=== PATIENT | male | born 1985 | race Caucasian/White ===

== ENCOUNTER → 2019-09-15 15:05 | Outpatient (BNVA) | payer MEDICAID, SELFPAY | PROVIDERS: PCP Internal Medicine Medical Oncology; Visit Provider Emergency Medicine | DX: R07.89 Other chest pain (principal) | CPT/HCPCS: 71046 ==

== ENCOUNTER → 2019-12-03 14:48 | Outpatient (BNVA) | payer MEDICAID, SELFPAY | PROVIDERS: PCP Internal Medicine Medical Oncology; Visit Provider Nurse Practitioner Family | DX: M79.641 Pain in right hand (principal) | CPT/HCPCS: 73130 ==

== ENCOUNTER → 2020-04-15 10:43 | Outpatient (BNVA) | payer MEDICAID, SELFPAY | PROVIDERS: PCP Internal Medicine Medical Oncology; Visit Provider Emergency Medicine | DX: Z20.828 Contact with and (suspected) exposure to other viral communicable diseases (principal); R68.89 Other general symptoms and signs | CPT/HCPCS: 87400; 87635 ==

== ENCOUNTER → 2021-09-27 16:35 | Outpatient (BNVA) | payer MEDICAID, SELFPAY | PROVIDERS: Visit Provider Emergency Medicine | DX: M54.6 Pain in thoracic spine (principal) | CPT/HCPCS: 72072 ==

== ENCOUNTER → 2022-05-08 16:17 | Outpatient (BNVA) | payer MEDICAID, SELFPAY | PROVIDERS: Visit Provider Nurse Practitioner Family | DX: R10.11 Right upper quadrant pain (principal) | CPT/HCPCS: 80053; 80061; 80074; 85025 ==

== ENCOUNTER 2022-05-24 07:46 | Outpatient (CLI) | payer MEDICAID, SELFPAY ==
--- NOTE | 2022-05-24 08:00 | US_ITS ---
WS: [id number] Complete ABDOMINAL ULTRASOUND HISTORY: R10.11 - Right upper quadrant pain COMPARISON: CT 07/07/2010 Liver: 14.5 cm in length. Liver is normal size and echogenicity with no mass or intrahepatic dilatati on. Portal Vein: Normal hepatopetal flow with monophasic waveform. Gallbladder: Normally distended with no gallstones, wall thickening or pericholecystic fluid. Pancreas: Normal size and echogenicity. CBD: 0.2 cm. Right kidney: 10.2 cm x 5.3 cm x 4.3 cm. No mass, cortical thickening or hydronephrosis. Left kidney: 10.3 cm x 4.3 cm x 5.0 cm. No mass, cortical thickening or hydronephrosis. Spleen: Normal size and echogenicity. Adjacent splenule measures 1.6 x 2.0 x 1.8 cm. Abdominal aorta and IVC are within normal limits. No ascites. US/US abdomen complete* [id number] IMPRESSION: 1. No acute abdominal findings. 2. Normal gallbladder. 3. No renal obstruction.
== END 2022-05-24 07:47 | disposition home or self-care (01) ==
LOC: RAD 07:50
PROVIDERS: Visit Provider Nurse Practitioner Family
DX: R10.11 Right upper quadrant pain (principal)
CPT/HCPCS: 76700

== ENCOUNTER → 2022-08-04 11:19 | Outpatient (BNVA) | payer MEDICAID, SELFPAY | PROVIDERS: Visit Provider Family Medicine | DX: M25.512 Pain in left shoulder (principal) | CPT/HCPCS: 73030 ==

== ENCOUNTER → 2022-11-24 08:46 | Outpatient (BNVA) | payer MEDICAID, OTHER, SELFPAY | PROVIDERS: PCP Family Medicine; Visit Provider Family Medicine | DX: S29.019A Strain of muscle and tendon of unspecified wall of thorax, initial encounter (principal); X58.XXXA Exposure to other specified factors, initial encounter | CPT/HCPCS: 72072 ==

== ENCOUNTER → 2022-12-12 16:14 | Outpatient (BNVA) | payer MEDICAID, OTHER, SELFPAY | PROVIDERS: PCP Family Medicine; Visit Provider Family Medicine | DX: F41.9 Anxiety disorder, unspecified (principal) | CPT/HCPCS: 93005 ==

== ENCOUNTER → 2022-12-21 11:53 | Outpatient (BNVA) | payer MEDICAID, OTHER, SELFPAY | PROVIDERS: PCP Family Medicine; Visit Provider Family Medicine | DX: L91.8 Other hypertrophic disorders of the skin (principal) | CPT/HCPCS: 88304 ==

== ENCOUNTER 2023-01-19 14:26 | Emergency (ER) | payer MEDICAID, OTHER, SELFPAY ==
[2023-01-19 14:40] VITALS: BMI 22.9
[2023-01-19 14:42] VITALS: BP 134/90; PULSE 78; RESP 18; TEMP 36.6; O2SAT 97
[2023-01-19 15:08] LABS: Basophils # 0.1 10^3/uL (0.0-0.1); Eosinophils # 0.2 10^3/uL (0.0-0.8); Eosinophils % 2.4 %; Hematocrit 51.7 % (42.0-52.0); Hemoglobin 16.4 g/dL (11.7-16.6); Lymphocytes # 2.8 10^3/uL (0.8-4.8); Mean Corpuscular HGB Conc 31.7 g/dL (30.0-36.0); Mean Corpuscular Volume 91.3 fl (80-94); Mean Platelet Volume 10.9 fL (7.4-10.4); Monocytes # 0.4 10^3/uL (0.2-0.9); Monocytes % 5.8 %; Neutrophils # 3.58 10^3/uL (1.8-7.7); Neutrophils % 50.5 %; Nucleated Red Blood Cells % 0 %; Platelet Count 240 10^3/cmm (130-400); Red Blood Count 5.66 10^6/uL (4.1-5.3); Red Cell Distribution Width 11.8 % (12.1-15.1); White Blood Count 7.1 10^3/uL (4.0-10.0)
[2023-01-19 16:33] LABS: Alanine Aminotransferase 27 U/L (0-41); Alkaline Phosphatase 57 U/L (40-130); Anion Gap 15.3 (5-19); Aspartate Amino Transferase 18 U/L (0-40); Blood Urea Nitrogen 14 mg/dL (6-20); Calcium 9.9 mg/dL (8.5-10.5); Carbon Dioxide 26 mmol/L (22-29); Chloride 103 mmol/L (98-107); Globulin 2.3 g/dL (1.3-4.6); Glomerular Filtration Rate 126.2 mL/min (90-130); Glucose 80 mg/dL (65-115); Lipase 51 U/L (13-60); Osmolality Calculated 289 mOsm/kg (285-295); Potassium 4.3 mmol/L (3.5-5.1); Sodium 140 mmol/L (136-145); Total Bilirubin 0.4 mg/dL (0.15-1.2); Total Protein 7.3 g/dL (6.6-8.7)
--- NOTE | 2023-01-19 17:54 | ED_ITS ---
HPI - Male Genitourinary General: Chief complaint: Urogenital-Male Stated complaint: physician sent, hernia Time Seen by Provider: 01/19/23 17:51 History of Present Illness: 37-year-old male patient comes in with some left inguinal pain. Patient has been seen 2 times at [facility] and diagnosed with inguinal hernia. Patient was seen at the walk-in clinic and [place] today and was referred to the ER for further evaluation and treatment. Patient reports no increased in pain or discomfort. 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 Insomnia Psychiatric care Reactive airway disease with acute exacerbation Surgical History H/O hernia repair H/O shoulder surgery Social History Smoking and tobacco status: former smoker Alcohol intake: current Alcohol intake frequency: holidays/special occasions only Desire information about alcohol rehabilitation?: No Substance/Drug Use: unknown Desire information about substance/drug rehabilitation?: No Current gender identity: Male Physical Exam Const: COMMON NORMALS: alert HENMT: COMMON NORMALS: normocephalic HEAD & SCALP: normocephalic Neck/C-Spine: COMMON NORMALS: full ROM Resp: COMMON NORMALS: normal respiratory effort Cardio: COMMON NORMALS: regular rate RATE: regular rate GI: COMMON NORMALS: Soft to palpation and non-tender PALPATION: Yes Soft to palpation : MALE GROIN/PERINEUM EXAM: No edema and No erythema PENIS: normal penis MEATUS: meatus normal SCROTUM: Yes testes descended bilaterally, Yes Cremasteric reflex present and Yes inguinal hernia (No bulge, no increased redness or tenderness) TESTES: Yes testicular lie normal and No testicular swelling Back/Pelvis: COMMON NORMALS: thoracic and lumbar spine normal to inspection Extremity: COMMON NORMALS: full ROM Neuro: SENSORIUM/ORIENTATION: Yes alert Skin: COMMON NORMALS: turgor normal GENERAL SKIN EXAM: turgor normal Course Vital Signs: Vital signs: Vital Signs Temperature 97.8 F 01/19/23 14:42 Pulse Rate 78 01/19/23 14:42 Respiratory Rate 18 01/19/23 14:42 Blood Pressure 134/90 01/19/23 14:42 Pulse Oximetry 97 01/19/23 14:42 Oxygen Delivery Me thod Room Air 01/19/23 14:42 MDM - Male Medical Decision Making 37-year-old male patient comes in today with a known left inguinal hernia. Patient was seen at walk-in clinic due to running out of his Tylenol 3 for his pain walk-in clinic referred him to the ER for further evaluation and treatment. On exam the left inguinal area notes no redness or induration. Patient is tender but no palpable hernia is noted at this time. Testicles are normal. Remainder of scrotal and genital exam was normal. Vital signs were normal. Review of the record noted 2 ultrasounds that showed possible hernia, and a CT scan that showed a fat-containing hernia in the left inguinal area. These exam were done in the last 6 days. Differential diagnosis includes but not limited to inguinal hernia incarceration, inguinal hernia without incarceration, muscle strain, anxiety about health, malingering. I believe patient has a inguinal hernia with no incarceration or signs of severe illness at this time. We wrote patient a prescription for medications to help with pain and put in a case management request for surgical follow-up. Patient was recommended not to heavy lift and to continue routine care. Patient stated understanding and agreed to plan. Lab Data 01/19/23 14:50 01/19/23 16:10 Laboratory Results WBC 7.1 10^3/uL (4.0-10.0) 01/19/23 14:50 RBC 5.66 10^6/uL (4.1-5.3) H 01/19/23 14:50 Hgb 16.4 g/dL (11.7-16.6) 01/19/23 14:50 Hct 51.7 % (42.0-52.0) 01/19/23 14:50 MCV 91.3 fl (80-94) 01/19/23 14:50 MCH 29.0 pg (28.0-34.0) 01/19/23 14:50 MCHC 31.7 g/dL (30.0-36.0) 01/19/23 14:50 RDW 11.8 % (12.1-15.1) L 01/19/23 14:50 Plt Count 240 10^3/cmm (130-400) 01/19/23 14:50 MPV 10.9 fL (7.4-10.4) H 01/19/23 14:50 Neut % (Auto) 50.5 % 01/19/23 14:50 Lymph % (Auto) 40.0 % 01/19/23 14:50 [place] % (Auto) 5.8 % 01/19/23 14:50 Eos % (Auto) 2.4 % 01/19/23 14:50 Baso % (Auto) 1.0 % 01/19/23 14:50 Neut # (Auto) 3.58 10^3/uL (1.8-7.7) 01/19/23 14:50 Lymph # (Auto) 2.8 10^3/uL (0.8-4.8) 01/19/23 14:50 [place] # (Auto) 0.4 10^3/uL (0.2-0.9) 01/19/23 14:50 Eos # (Auto) 0.2 10^3/uL (0.0-0.8) 01/19/23 14:50 Baso # (Auto) 0.1 10^3/uL (0.0-0.1) 01/19/23 14:50 Nucleated RBC % (auto) 0 % 01/19/23 14:50 Nucleated RBCs # 0.0 /100WBC 01/19/23 14:50 Sodium 140 mmol/L (136-145) 01/19/23 16:10 Potassium 4.3 mmol/L (3.5-5.1) 01/19/23 16:10 Chloride 103 mmol/L (98-107) 01/19/23 16:10 Carbon Dioxide 26 mmol/L (22-29) 01/19/23 16:10 Anion Gap 15.3 (5-19) 01/19/23 16:10 BUN 14 mg/dL (6-20) 01/19/23 16:10 Creatinine 0.7 mg/dL (0.7-1.2) 01/19/23 16:10 GFR Calculation 126.2 mL/min (90-130) 01/19/23 16:10 Glucose 80 mg/dL (65-115) 01/19/23 16:10 Calculated Osmolality 289 mOsm/kg (285-295) 01/19/23 16:10 Calcium 9.9 mg/dL (8.5-10.5) 01/19/23 16:10 Total Bilirubin 0.4 mg/dL (0.15-1.2) 01/19/23 16:10 AST 18 U/L (0-40) 01/19/23 16:10 ALT 27 U/L (0-41) 01/19/23 16:10 Alkaline Phosphatase 57 U/L (40-130) 01/19/23 16:10 Total Protein 7.3 g/dL (6.6-8.7) 01/19/23 16:10 Albumin 5.0 g/dL (3.5-5.2) 01/19/23 16:10 Globulin 2.3 g/dL (1.3-4.6) 01/19/23 16:10 Lipase 51 U/L (13-60) 01/19/23 16:10 Discharge Plan Discharge Patient Disposition: Home Clinical Impression: Inguinal hernia Qualifiers: Obstruction and gangrene presence: without obstruction or gangrene Laterality: unilateral Recurrence: non-recurrent Qualified Code(s): K40.90 - Unilateral inguinal hernia, without obstruction or gangrene, not specified as recurrent Condition: Stable Prescriptions: New hydrocodone-acetaminophen 5-325 mg tablet 1 tab PO Q6H PRN (Reason: pain) Qty: 12 0RF No Action acetaminophen-codeine 300-30 mg tablet 1 tab PO Q4H PRN (Reason: groin pain) Qty: 20 0RF methocarbamol 750 mg tablet 750 mg PO TID 5 Days Qty: 15 0RF ondansetron 4 mg tablet,disintegrating 4 mg PO Q6H PRN (Reason: nausea and vomiting) Qty: 12 0RF Rx Instructions: 340b please Discharge Orders: Discharge ED (Routine); Ordered 01/19/23 Ordered By: Casey Calderon Referrals: Jaelyn Choe MD [Primary Care Provider] - Discharge Diet: Usual diet Discharge Activity: Increase activity as tolerated Patient Instructions: Inguinal Hernia (ED) Activity Restrictions/Additional Instructions: Home and rest. No heavy lifting. Drink plenty of water. Monitor site for signs of redness and inflammation. Return to ER for the signs including high fever or blood in vomit or stool. Follow-up with primary care as needed. Case management will contact you regarding follow-up appointment with surgeon. Coding Level of Care Code ED Rubber Mold Maker for Lamar Hunter
[2023-01-19 18:08] VITALS: BP 127/90; PULSE 71; O2SAT 95
[2023-01-19] MEDS: HYDROcodone-acetaminophen 7.5-325 mg Tablet 1 TAB PO (18:09)
--- NOTE | 2023-01-20 07:40 | DCPLANNER ---
Addendum entered by Nelly Sharma 01/31/23 15:08: Patient did attend appointment scheduled with general surgery Addendum entered by Nelly Sharma 01/24/23 15:22: Patient has a follow up appointment scheduled for Friday, January 27, 2023 at 1:[address] Almaraz at general surgery. Original Note: manager of change had message to schedule a follow up appointment for patient with general surgery. manager of change sent patients information to the front office staff at general surgery. Patients information will be printed and reviewed. Clinic will call patient with appointment information.
== END 2023-01-19 18:12 | disposition home or self-care (01) ==
PROVIDERS: Emergency Medicine; Emergency Provider Nurse Practitioner Family; PCP Family Medicine
DX: K40.90 Unilateral inguinal hernia, without obstruction or gangrene, not specified as recurrent (principal); Z87.891 Personal history of nicotine dependence
CPT/HCPCS: 36415; 80053; 83690; 85025; 99283

== ENCOUNTER 2023-03-15 10:38 | Day surgery (SDC) | payer MEDICAID, SELFPAY ==
[2023-02-14 10:30] VITALS: BMI 22.8
[2023-03-15] VITALS (12 sets, daily range): BP systolic 110–126; BP diastolic 65–100; PULSE 61–90; RESP 14–19; TEMP 36.2–36.9; O2SAT 92–98; BMI 22.8
--- NOTE | 2023-03-15 06:32 | W.PM.OPSFHP ---
Same Day Surgery H&P Indication for Procedure/HPI DATE OF PROCEDURE: March 15, 2023 CHIEF COMPLAINT/INDICATIONFOR SURGICAL PROCEDURE: Left inguinal hernia PREOP DIAGNOSIS: Left inguinal hernia PLANNED PROCEDURE: Operation Date: 03/15/23 12:45 Proposed Procedures p ap possible open left inguinal hernia with mesh 44443,K46.9(Left) - Sudhir Brunson MD Medications/Allergies* Home Medications Medication Instructions Recorded Confirmed Type No Known Home Medications 02/14/23 02/14/23 History Allergies/Adverse Reactions Allergy/AdvReac Type Severity Reaction Status Date / Time ketorolac [From Toradol] AdvReac Mild ADR-Halluci Verified 02/14/23 10:27 nating Pertinent History/Comorbid Conditions* Medical History (Updated 01/27/23 @ 14:31 by Sudhir Brunson MD) Alcoholism Anxiety 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 Insomnia Psychiatric care Reactive airway disease with acute exacerbation Surgical History (Updated 08/04/22 @ 13:47 by Jaelyn Choe MD) H/O hernia repair H/O shoulder surgery Social History Smoking and tobacco status: former smoker Alcohol intake: former Desire information about alcohol rehabilitation?: No Substance/Drug Use: unknown Desire information about substance/drug rehabilitation?: No Current gender identity: Male Pertinent Exam Findings alert, oriented x 3, clear to auscultation bilaterally, regular rate & rhythm and operative site marked Recommendations Surgery/Procedure today (patient planned for laparoscopic, possible open left inguinal hernia repair with mesh. ) Coding Level of Care Code Acute Code for Chg Fwd Diagnoses
[2023-03-15] MEDS: sodium chloride 0.9% 1,000 ML 30 ML IV (11:10)
--- NOTE | 2023-03-15 12:33 | P.ANESASSM_ITS ---
Pre-Anesthetic Assessment Height/Weight: Height 1.83 m Weight 76.204 kg Temp Pulse Resp BP Pulse Ox O2 Del Method 98.5 F 63 19 H 120/86 98 Room Air 03/15/23 12:01 03/15/23 12:01 03/15/23 12:01 03/15/23 12:01 03/15/23 12:01 03/15/23 12:01 Preop Diagnosis: Left inguinal hernia Operation Date: 03/15/23 12:45 Proposed Procedures p ap possible open left inguinal hernia with mesh 16155,K46.9(Left) - Sudhir Brunson MD Familial anesthetic complications: None Was Beta Marilu taken within 24 hours: N/A Was Clonidine taken within 24 hours: N/A Last intake: Intake Last Liquid Date 03/14/23 Last Liquid Time 21:00 Last Solid Date 03/14/23 Last Solid Time 16:00 Social No alcohol and No tobacco Exam alert, oriented x 3, clear to auscultation bilaterally and regular rate & rhythm Airway Dentition: chipped and full Anesthetic Plan ASA status: 1 Anesthesia: General Risk of > 500 ml blood loss (7ml/kg in children): No Other Pertinent Information states he doesn't want toradol because it caused him to see shadows after a shoulder surgery when he had it Medications/Allergies Home Medications Medication Instructions Recorded Confirmed Last Taken Type No Known Home Medications 02/14/23 02/14/23 Unknown History Allergies Allergy/AdvReac Type Severity Reaction Status Date / Time ketorolac [From Toradol] AdvReac Mild ADR-Halluci Verified 02/14/23 10:27 [facility] Anesthesia Medical History (Updated 01/27/23 @ 14:31 by Sudhir Brunson MD) Alcoholism Anxiety 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
[2023-03-15] MEDS: midazolam 1 mg/mL INJ 2 mL 2 MG IVP (12:59)
[2023-03-15] MEDS: ceFAZolin 2,000 MG in sodium chloride 0.9% (plus) 50 ML 100 MG IV (13:17)
[2023-03-15] MEDS: BUPivacaine 0.25% INJ 10 mL INJECTION (14:04)
[2023-03-15] MEDS: lidocaine-epi 2% 20 mL INJ INJECTION (14:06)
--- NOTE | 2023-03-15 14:25 | PM.OP ---
Operative Report Date of procedure: March 15, 2023 Pre-op diagnosis: Left inguinal hernia Post-op diagnosis: Same Procedure done: Laparoscopic left inguinal hernia repair with mesh Implants: Large left Bard 3D max mesh Surgeon: Sudhir Brunson MD Instrument Maker And Repairer: SONG OR Staff Estimated blood loss: 5cc Complications: None Findings: Left indirect inguinal hernia, left lipoma of the cord Brief History: Is a 29-year-old male with a left inguinal hernia who presented to my clinic for possible repair. After lengthy discussion regarding risk and benefits we decided on proceeding laparoscopic possible open repair with mesh. Procedure: Patient was taken to the OR, placed in the supine position. General esthesia was given. The abdomen was prepped and draped in the usual sterile fashion, timeout was conducted. A 1.5 cm infraumbilical incision was made, the incision was deepened to the level of the anterior rectus sheath. The anterior rectus sheath was opened sharply, the rectus muscle was retracted laterally accessing the retrorectus space. A Spacemaker was introduced and carefully advanced to the level of the pubic bone. The balloon was open under direct visualization, this pacemaker was then removed and replaced with a 12 mm trocar. Additional 5 mm trocars were placed in the suprapubic and infraumbilical position. I started my dissection by identified the symphysis pubis, I then proceeded with a lateral dissection along the left abdominal wall to develop the space of Borgess. The cord structures hernia were then identified it was noted to be an indirect inguinal hernia. I carefully dissected the vas deferens and the spermatic vessels from the sac, I then reduced the sac from the internal inguinal ring. The sac was dissected and freed on the length of about 4 cm from the inguinal ring. In addition I noted a large lipoma of the cord the same was reduced to the properitoneal space. A large left 3D max mesh was then deployed in the preperitoneal space, the mesh was fixed on the medial portion to the pubic bone using an absorbable tacker. At the end of the procedure the mesh was laying flat covering the direct indirect and femoral spaces. The cavity was desufflated under direct visualization to ensure that the mesh would lay flat. The trocars were removed the anterior rectus sheath was closed with #0 Vicryl. The wounds were closed with #4-0 Monocryl for the skin, sterile dressing with Dermabond was applied. The patient tolerated well the procedure was extubated and transferred to the PACU in stable condition. At the end of the procedure all counts were correct.
[2023-03-15] MEDS: fentaNYL 50 mcg/mL INJ 2mL IVP (15:09)
--- NOTE | 2023-03-15 15:50 | ANE.PACU2 ---
Inpatient post-anesthesia follow up: Airway intact: Yes Vital signs: Temperature 97.9 F Pulse Rate 77 Respiratory Rate 18 Blood Pressure 118/84 Pulse Oximetry 97 Oxygen Delivery Me thod Room Air Oxygen Flow Rate 6 Fraction of Inspir ed Oxygen Hydration adequate: Yes Nausea and vomiting: No Pain level: 1 Mental status: Baseline
[2023-03-15] MEDS: oxyCODONE 5 mg IR Tab/Cap PO (16:07)
== END 2023-03-15 16:26 | disposition home or self-care (01) ==
PROVIDERS: PCP Family Medicine; Visit Provider Surgery
PROC: (CPT 49650; principal; 2023-03-15 12:35)
DX: K40.90 Unilateral inguinal hernia, without obstruction or gangrene, not specified as recurrent (principal); Z87.891 Personal history of nicotine dependence
CPT/HCPCS: 49650; 51702; C1781; J0690; J1100; J2250; J2405; J2704; J2710; J3010; J3490; J7030

== ENCOUNTER 2023-03-20 11:07 | Outpatient (CLI) | payer MEDICAID, SELFPAY ==
--- NOTE | 2023-03-20 11:20 | USCV_ITS ---
Casey Delgado Age: 37 Gender: M : 1985 Exam Date: 03/20/2023 11:45 Ordering Phys: Nancy Castellanos NP Technologist: CT Exam Location: [facility] [place] Indication: arm pain PROCEDURES: Venous duplex imaging was performed in only the right upper extremity. In addition, the basilic vein, cephalic vein, radial vein, and ulnar vein. FINDINGS: Evidence of acute partial superficial thrombophlebitis in the right basilic vein with abnormal flow dynamics. All other veins of the right upper extremity demonstrate normal flow dynamics with no evidence of deep vein thrombosis. CONCLUSIONS No right upper extremity DVT. Superficial right basilic thrombophlebitis. Dr. Jyothi Broussard DO (Electronically Signed) Final Date: 20 March 2023 13:03 S
== END 2023-03-20 11:08 | disposition home or self-care (01) ==
PROVIDERS: PCP Family Medicine; Visit Provider Nurse Practitioner Family
DX: I80.8 Phlebitis and thrombophlebitis of other sites (principal)
CPT/HCPCS: 93971

== ENCOUNTER 2023-03-20 12:15 | Emergency (ER) | payer MEDICAID, SELFPAY ==
[2023-03-20 12:21] VITALS: BP 129/88; PULSE 80; RESP 14; TEMP 36.6; O2SAT 96; BMI 22.6
--- NOTE | 2023-03-20 12:42 | W.ED.EXTPRO ---
HPI - Extremity Problem General: Chief complaint: Extremity Problem,Nontraumatic Stated complaint: post surgical issues Time Seen by Provider: 03/20/23 12:27 Source: patient Mode of arrival: ambulatory History of Present Illness: 37-year-old male presents to the emergency room with complaints of palpable nodule at the site of an IV that he had for his inguinal hernia repair last week he is also had some nausea and persistent groin pain on the left at the site of his surgery. Patient has been nauseous but not any vomiting no bleeding no shortness of breath no chest pain MD Complaint: extremity pain and extremity swelling Onset (ago): day(s) Pain Consistency: constant Location: left (Groin) and right (Forearm) Quality: aching Relieving factors: rest Exacerbating factors: nothing Associated symptoms: Deny arthralgias, chest pain, fever(s), myalgias, rash or short of breath Review of Systems Const: Denies: fever(s) Card: Denies: chest pain Resp: Denies: dyspnea GI: Denies: abdominal pain : Denies: dysuria, urinary frequency or urinary urgency Musc: Denies: neck pain or back pain Skin/Breast: Denies: rash PFSH ED PFSH: Medical History Alcoholism Anxiety 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 Insomnia Psychiatric care Reactive airway disease with acute exacerbation Surgical History H/O hernia repair H/O shoulder surgery Social History Smoking and tobacco status: former smoker Alcohol intake: former Desire information about alcohol rehabilitation?: No Substance/Drug Use: unknown Desire information about substance/drug rehabilitation?: No Current gender identity: Male Physical Exam Const: COMMON NORMALS: no acute distress GENERAL APPEARANCE: cooperative and comfortable ORIENTATION/CONSCIOUSNESS: Yes awake, Yes oriented to person, Yes oriented to place and Yes oriented to time HENMT: COMMON NORMALS: normocephalic, atraumatic and hearing grossly normal bilaterally HEAD & SCALP: normocephalic and atraumatic Resp: COMMON NORMALS: normal respiratory effort, No retractions, No use of accessory muscles and clear to auscultation bilaterally AUSCULTATION: clear to auscultation bilaterally Cardio: COMMON NORMALS: regular rate, regular rhythm and No murmurs present (Cardio) RATE: regular rate RHYTHM: regular rhythm GI: COMMON NORMALS: Soft to palpation and No hepatosplenomegaly present AUSCULTATION: Yes normoactive bowel sounds PALPATION: Yes Soft to palpation, No Tenderness to palpation present (GI), No Guarding due to palpation present (GI) and Yes No hepatosplenomegaly present Extremity: COMMON NORMALS: normal to inspection, capillary refill normal, no clubbing, cyanosis or edema, no calf tenderness and no pedal edema Neuro: SENSORIUM/ORIENTATION: Yes oriented to person, Yes oriented to place and Yes oriented to time Skin: COMMON NORMALS: no rashes or lesions noted GENERAL SKIN EXAM: no rashes or lesions noted Course Vital Signs: Vital signs: Vital Signs Temperature 97.9 F 03/20/23 12:21 Pulse Rate 80 03/20/23 12:21 Respiratory Rate 14 03/20/23 12:21 Blood Pressure 129/88 03/20/23 12:21 Pulse Oximetry 96 03/20/23 12:21 Oxygen Delivery Me thod Room Air 03/20/23 12:21 MDM - Extremity (Nontraumatic) Medical Decision Making Discussed with the patient for the superficial thrombophlebitis from the IV start no imaging is necessary apply moist heat. Should resolve on its own. As far as the groin goes he has no sign of infection inflammation there is no sign recurrence of the hernia he is very tender in that area likely just from inflammation from the surgery does have some pain radiating into the left testicle as well. Refilled pain and nausea medications for mild follow-up with Dr. Brunson. He did contact about Dr. Brunson about the patient as well. Medical Records I reviewed the patient's medical records. Lab Data I reviewed the patient's lab results. No radiology studies performed this visit Discharge Plan Discharge Patient Disposition: Home Clinical Impression: Left inguinal hernia, Superficial thrombophlebitis of arm Condition: Stable Prescriptions: New hydrocodone-acetaminophen 5-325 mg tablet 1 tab PO Q6H PRN (Reason: pain) Qty: 15 0RF ondansetron HCl 4 mg tablet 4 mg PO Q6H PRN (Reason: nausea and vomiting) Qty: 20 0RF No Action amoxicillin-pot clavulanate 875-125 mg tablet 1 tab PO BID 7 Days Qty: 14 0RF Rx Instructions: for 7 days (rx filled 03/17/23) albuterol sulfate 90 mcg/actuation HFA aerosol inhaler 2 puff inhalation Q6H PRN (Reason: shortness of breath or wheezing) Qty: 8.5 0RF meloxicam 7.5 mg tablet 7.5 mg PO DAILY Qty: 7 0RF oxycodone 5 mg tablet 5 mg PO Q8H PRN (Reason: severe pain) Qty: 10 0RF Discharge Orders: Discharge ED (Routine); Ordered 03/20/23 Ordered By: Maksim Laurent Referrals: Jaelyn Choe MD [Primary Care Provider] - Patient Instructions: Opioid Safety, Pain Management Activity Restrictions/Additional Instructions: Follow-up with Dr. Brunson as previously scheduled. Coding Level of Care Code ED Mill Labor Supervisor for Lamar Hunter
== END 2023-03-20 12:51 | disposition home or self-care (01) ==
PROVIDERS: Emergency Provider Family Medicine; PCP Family Medicine
DX: I80.8 Phlebitis and thrombophlebitis of other sites (principal); Z87.891 Personal history of nicotine dependence; K40.90 Unilateral inguinal hernia, without obstruction or gangrene, not specified as recurrent
CPT/HCPCS: 99283

== ENCOUNTER → 2023-05-09 09:55 | Outpatient (BNVA) | payer MEDICAID, SELFPAY | PROVIDERS: PCP Family Medicine; Visit Provider Nurse Practitioner Family | DX: R39.9 Unspecified symptoms and signs involving the genitourinary system (principal); R80.9 Proteinuria, unspecified | CPT/HCPCS: 81000; 87086 ==

== ENCOUNTER → 2023-05-30 10:23 | Outpatient (BNVA) | payer MEDICAID, SELFPAY | PROVIDERS: PCP Family Medicine; Visit Provider Emergency Medicine | DX: R10.9 Unspecified abdominal pain (principal) | CPT/HCPCS: 81000; 87086 ==

== ENCOUNTER 2023-06-11 18:35 | Emergency (ER) | payer MEDICAID, SELFPAY ==
[2023-06-11 18:36] VITALS: BP 136/78; PULSE 76; RESP 14; TEMP 36.5; O2SAT 95
[2023-06-11 19:15] LABS: Basophils % 0.4 %; Eosinophils # 0.1 10^3/uL (0.0-0.8); Hematocrit 51.3 % (37-53); Lymphocytes # 1.6 10^3/uL (0.8-4.8); Mean Corpuscular HGB Conc 32.7 g/dL (30-55); Mean Corpuscular Hemoglobin 29.2 pg (27-33); Mean Corpuscular Volume 89.1 fl (82-101); Monocytes # 0.5 10^3/uL (0.2-0.9); Monocytes % 8.4 %; Neutrophils % 58.7 %; Nucleated Red Blood Cells % 0 %; Platelet Count 253 10^3/cmm (157-399); Red Blood Count 5.76 10^6/uL (3.85-5.65); Red Cell Distribution Width 11.9 % (12.1-15.1); White Blood Count 5.46 10^3/uL (3.29-11.43)
[2023-06-11 19:38] LABS: Alanine Aminotransferase 21 U/L (0-41); Albumin Level 4.4 g/dL (3.5-5.2); Alkaline Phosphatase 66 U/L (40-130); Anion Gap 14.7 (5-19); Aspartate Amino Transferase 15 U/L (0-40); Blood Urea Nitrogen 16 mg/dL (6-20); Calcium 9.5 mg/dL (8.5-10.5); Carbon Dioxide 29 mmol/L (22-29); Chloride 98 mmol/L (98-107); Globulin 3.3 g/dL (1.3-4.6); Glomerular Filtration Rate 107.6 mL/min (90-130); Glucose 84 mg/dL (65-115); Osmolality Calculated 286 mOsm/kg (285-295); Potassium 3.7 mmol/L (3.5-5.1); Sodium 138 mmol/L (136-145); Total Bilirubin 0.2 mg/dL (0.15-1.2); Total Protein 7.7 g/dL (6.6-8.7)
--- NOTE | 2023-06-11 19:45 | ECG_ITS ---
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 Measurements Intervals [place] Rate: 80 P: 50 OR: 171 QRS: 15 QRSD: 82 T: 36 QT: 372 QTc: 430 Interpretive Statements SINUS RHYTHM No previous ECG available for comparison Electronically Signed On 06-12-2023 8:35:52 NUTRITION PROFESSOR by Brandon Eduardo M.D. [email or web address]
--- NOTE | 2023-06-11 19:57 | W.ED.NAVMDI ---
HPI - Nausea/Vomiting/Diarrhea General: Chief complaint: Nausea/Vomiting/Diarrhea Stated complaint: almost passed out Time Seen by Provider: 06/11/23 18:47 Source: patient Mode of arrival: ambulatory Limitations: no limitations History of Present Illness: 38-year-old male states he has been having nausea and vomiting for the last 2 days denies any abdominal pain he states that today he stood up and felt lightheaded and fell he is in a pass out he states he feels much improved his nausea is improved well he has been drinking Pedialyte denies any chest pain denies any headache. 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 Alcoholism Psychiatric care Insomnia Anxiety Reactive airway disease with acute exacerbation Surgical History Hx of colonoscopy 5 yrs ago Hx of inguinal hernia repair 03/15/23 Dr Boy brooks left inguinal hernia repair with mesh H/O shoulder surgery H/O hernia repair Social History Smoking and tobacco/nicotine status: former use of tobacco/nicotine Alcohol intake: former Substance/Drug Use: unknown Current gender identity: Male Course Vital Signs: Vital signs: Vital Signs Temperature 97.7 F 06/11/23 18:36 Pulse Rate 76 06/11/23 18:36 Respiratory Rate 14 06/11/23 18:36 Blood Pressure 136/78 06/11/23 18:36 Pulse Oximetry 95 06/11/23 18:36 Oxygen Delivery Me thod Room Air 06/11/23 18:36 MDM - Nausea/Vomiting/Diarrhea Medical Decision Making Patient presents here with nausea vomiting along with near syncope he feels much improved here I did offer him IV fluids he states he feels improved would like to go home did give him Zofran here will prescribe Zofran for home his blood work and EKG are all normal likely a vasovagal event Medical Records I reviewed the patient's medical records. Lab Data I reviewed the patient's lab results. 06/11/23 19:07 06/11/23 19:07 Laboratory Results WBC 5.46 10^3/uL (3.29-11.43) 06/11/23 19:07 RBC 5.76 10^6/uL (3.85-5.65) H 06/11/23 19:07 Hgb 16.80 g/dL (11.27-16.99) 06/11/23 19:07 Hct 51.3 % (37-53) 06/11/23 19:07 MCV 89.1 fl (82-101) 06/11/23 19:07 MCH 29.2 pg (27-33) 06/11/23 19:07 MCHC 32.7 g/dL (30-55) 06/11/23 19:07 RDW 11.9 % (12.1-15.1) L 06/11/23 19:07 Plt Count 253 10^3/cmm (157-399) 06/11/23 19:07 MPV 10.0 fL (7.4-10.4) 06/11/23 19:07 Neut % (Auto) 58.7 % 06/11/23 19:07 Lymph % (Auto) 30.0 % 06/11/23 19:07 Dundy % (Auto) 8.4 % 06/11/23 19:07 Eos % (Auto) 2.0 % 06/11/23 19:07 Baso % (Auto) 0.4 % 06/11/23 19:07 Neut # (Auto) 3.20 10^3/uL (1.8-7.7) 06/11/23 19:07 Lymph # (Auto) 1.6 10^3/uL (0.8-4.8) 06/11/23 19:07 Dundy # (Auto) 0.5 10^3/uL (0.2-0.9) 06/11/23 19:07 Eos # (Auto) 0.1 10^3/uL (0.0-0.8) 06/11/23 19:07 Baso # (Auto) 0.0 10^3/uL (0.0-0.1) 06/11/23 19:07 Nucleated RBC % (auto) 0 % 06/11/23 19:07 Nucleated RBCs # 0.0 /100WBC 06/11/23 19:07 Sodium 138 mmol/L (136-145) 06/11/23 19:07 Potassium 3.7 mmol/L (3.5-5.1) 06/11/23 19:07 Chloride 98 mmol/L (98-107) 06/11/23 19:07 Carbon Dioxide 29 mmol/L (22-29) 06/11/23 19:07 Anion Gap 14.7 (5-19) 06/11/23 19:07 BUN 16 mg/dL (6-20) 06/11/23 19:07 Creatinine 0.8 mg/dL (0.7-1.2) 06/11/23 19:07 GFR Calculation 107.6 mL/min (90-130) 06/11/23 19:07 Glucose 84 mg/dL (65-115) 06/11/23 19:07 Calculated Osmolality 286 mOsm/kg (285-295) 06/11/23 19:07 Calcium 9.5 mg/dL (8.5-10.5) 06/11/23 19:07 Total Bilirubin 0.2 mg/dL (0.15-1.2) 06/11/23 19:07 AST 15 U/L (0-40) 06/11/23 19:07 ALT 21 U/L (0-41) 06/11/23 19:07 Alkaline Phosphatase 66 U/L (40-130) 06/11/23 19:07 Total Protein 7.7 g/dL (6.6-8.7) 06/11/23 19:07 Albumin 4.4 g/dL (3.5-5.2) 06/11/23 19:07 Globulin 3.3 g/dL (1.3-4.6) 06/11/23 19:07 No radiology studies performed this visit EKG Data EKG 1: I personally reviewed and interpreted this EKG as follows: EKG interpretation date: 06/11/23 EKG interpretation time: 19:45 Interpretation: nsr hr [address] or t wave abnormalities qrs 82 qtc 408 Discharge Plan Discharge Patient Disposition: Home Clinical Impression: Nausea and vomiting, Near syncope Condition: Stable Prescriptions: New ondansetron 4 mg tablet,disintegrating 4 mg PO Q6H PRN (Reason: nausea and vomiting) Qty: 14 0RF No Action amoxicillin-pot clavulanate 875-125 mg tablet 1 tab PO BID 10 Days Qty: 20 0RF cyclobenzaprine 10 mg tablet 10 mg PO TID PRN (Reason: muscle spasm) Qty: 14 1RF fluticasone propionate 50 mcg/actuation spray,suspension 1 spray intranasal DAILY PRN (Reason: allergy symptoms) Qty: 16 0RF Rx Instructions: administer into each nostril albuterol sulfate 90 mcg/actuation HFA aerosol inhaler 2 puff inhalation Q6H PRN (Reason: shortness of breath or wheezing) Qty: 8.5 0RF Discharge Orders: Discharge ED (Routine); Ordered 06/11/23 Ordered By: Ronnie Peter Referrals: Jaelyn Choe MD [Primary Care Provider] - 1-3 days Discharge Diet: Advance as tolerated Discharge Activity: Resume usual activity Patient Instructions: Acute Nausea and Vomiting (ED), Near Syncope (ED) Coding Level of Care Code ED Back Tender Pulp Drier for Lamar Hunter
[2023-06-11] MEDS: ondansetron 2 mg/ML SDV 2 mL 4 MG IM (20:14)
[2023-06-11] MEDS: ondansetron 4 MG Tablet PO (20:15)
[2023-06-11 20:38] VITALS: BP 136/78; PULSE 76; TEMP 36.5; O2SAT 95
== END 2023-06-11 20:39 | disposition home or self-care (01) ==
PROVIDERS: Nurse Practitioner; Emergency Provider Emergency Medicine; PCP Family Medicine
DX: R11.2 Nausea with vomiting, unspecified (principal); R55 Syncope and collapse; Z87.891 Personal history of nicotine dependence
CPT/HCPCS: 36415; 80053; 85025; 93005; 96372; 99284; J2405; Q0162

== ENCOUNTER → 2023-08-03 12:28 | Outpatient (BNVA) | payer MEDICAID, SELFPAY | PROVIDERS: PCP Family Medicine; Visit Provider Emergency Medicine | DX: R06.02 Shortness of breath (principal); F41.9 Anxiety disorder, unspecified | CPT/HCPCS: 93005 ==

== ENCOUNTER → 2023-09-04 11:52 | Outpatient (BNVA) | payer MEDICAID, SELFPAY | PROVIDERS: PCP Family Medicine; Visit Provider Nurse Practitioner Family | DX: M25.512 Pain in left shoulder (principal) | CPT/HCPCS: 73030 ==

== ENCOUNTER → 2023-10-24 13:24 | Outpatient (BNVA) | payer MEDICAID, SELFPAY | PROVIDERS: PCP Family Medicine; Referring Provider Emergency Medicine; Visit Provider Physician Assistant | DX: M25.512 Pain in left shoulder (principal); M75.42 Impingement syndrome of left shoulder | CPT/HCPCS: 73030 ==